=== PATIENT | male | born 1975 | race Caucasian/White ===

== ENCOUNTER 2021-12-06 06:42 | Emergency (ER) | payer OTHER ==
[2021-12-06] MEDS ORDERED: Iopamidol 755 Mg/ML 100 ML Bottle IV ONE ×2 (06:48)
[2021-12-06] MEDS: Diphtheria,Pertussis(Acell),Tetanus Vaccine 0.5 ML Syringe IM ONE (08:12)
[2021-12-06] MEDS: Ondansetron 4 MG/2 ML SDV IVPUSH ONE (08:13)
[2021-12-06] MEDS: HYDROmorphone 1 MG/ML Syringe IVPUSH ONE ×2 (08:13→15:44)
[2021-12-06 09:41] LABS: BLOOD UREA NITROGEN,BUN 16 mg/dL (7.0-18.0); CARBON DIOXIDE,CO2 27.8 mmol/L (21.0-32.0); CHLORIDE,CL 102 mmol/L (98-107); GLUCOSE RANDOM 280 mg/dL (74-106); LIPASE 294 U/L (73-393); POTASSIUM,K 4.8 mmol/L (3.5-5.1); SODIUM,NA 137 mmol/L (136-148)
[2021-12-06 10:11] LABS: ESTIMATED GFR 93 mL/min (>60)
[2021-12-06] MEDS: HYDROmorphone 1 MG/ML Syringe IVPUSH STA (13:11)
== END 2021-12-06 15:28 ==
LOC: EDBD 06:42 → MW.ED 06:42
DX: S62.647A Nondisplaced fracture of proximal phalanx of left little finger, initial encounter for closed fracture (principal); S82.61XA Displaced fracture of lateral malleolus of right fibula, initial encounter for closed fracture; S01.01XA Laceration without foreign body of scalp, initial encounter; Z20.822 Contact with and (suspected) exposure to COVID-19; Z23 Encounter for immunization; V48.5XXA Car driver injured in noncollision transport accident in traffic accident, initial encounter; Y92.410 Unspecified street and highway as the place of occurrence of the external cause
CPT/HCPCS: 12001; 29125; 36415; 51702; 70450; 71045; 71260; 72125; 72128; 72131; 72170; 73130; 73590; 73610; 74177; 80053; 80307; 81001; 82550; 83690; 85025; 85610; 87635; 90471; 90715; 96374; 96375; 96376; 99285; J1170; J2405; Q9967; 12002; 93010; 99291; U0002